=== PATIENT | male | born 2000 | race Two or more races ===

== ENCOUNTER 2022-01-03 17:21 | Emergency (ER) | payer OTHER ==
[2022-01-03 17:48] VITALS: BP 146/79; PULSE 72; TEMP 98; BMI 36.1
[2022-01-04 15:09] LABS: SARS-CoV-2 NAA Not Detected (Not Detected)
== END 2022-01-03 19:04 | disposition home or self-care (01) ==
LOC: JER 17:21
DX: R07.0 Pain in throat (principal); Z11.52 Encounter for screening for COVID-19
CPT/HCPCS: 87651; 99283-25; C9803; U0003; U0005

== ENCOUNTER 2022-03-19 10:39 | Emergency (ER) | payer OTHER ==
[2022-03-19 10:52] VITALS: BP 113/65; PULSE 84; TEMP 97.8; BMI 40.3
== END 2022-03-19 11:56 | disposition home or self-care (01) ==
LOC: JERFT 10:39
DX: L03.031 Cellulitis of right toe (principal); L60.0 Ingrowing nail
CPT/HCPCS: 99283-25

== ENCOUNTER 2022-07-04 15:32 | Emergency (ER) | payer OTHER ==
[2022-07-04 15:39] VITALS: BP 125/71; PULSE 77; RESP 18; TEMP 98; BMI 35.3
[2022-07-04] MEDS ORDERED: CEPHALEXIN MONOHYDRATE 500 MG CAPSULE (UD) PO ONE (19:04)
[2022-07-04] MEDS ORDERED: CEPHALEXIN MONOHYDRATE 500 MG CAPSULE (UD) ONE (19:06)
== END 2022-07-04 19:39 | disposition home or self-care (01) ==
LOC: JERFT 15:32
DX: S90.851A Superficial foreign body, right foot, initial encounter (principal); W45.8XXA Other foreign body or object entering through skin, initial encounter
CPT/HCPCS: 73630-TC-RT-FY; 99283-25

== ENCOUNTER 2023-02-04 12:52 | Emergency (ER) | payer OTHER ==
[2023-02-04 12:59] VITALS: BP 116/71; PULSE 76; RESP 18; TEMP 98.1; BMI 35.0
[2023-02-04] MEDS ORDERED: ACETAMINOPHEN 500 MG TABLET (FP) PO ONE (14:20)
[2023-02-04] MEDS ORDERED: CYCLOBENZAPRINE HCL 10 MG TABLET (FP) PO ONE (14:20)
[2023-02-04] MEDS ORDERED: KETOROLAC TROMETHAMINE 30 MG/1 ML VIAL IM ONE (14:20)
[2023-02-04] MEDS ORDERED: KETOROLAC TROMETHAMINE 30 MG/1 ML VIAL ONE (14:22)
[2023-02-04] MEDS ORDERED: ACETAMINOPHEN 500 MG TABLET (FP) ONE (14:22)
[2023-02-04] MEDS ORDERED: CYCLOBENZAPRINE HCL 10 MG TABLET (FP) ONE (14:22)
[2023-02-04] MEDS ORDERED: IBUPROFEN 600 MG TABLET (FP) PO ONE ×2 (14:27→14:32)
== END 2023-02-04 15:38 | disposition home or self-care (01) ==
LOC: JERFT 12:52
DX: M25.512 Pain in left shoulder (principal)
CPT/HCPCS: 73030-TC-LT-FY; 99283-25

== ENCOUNTER 2023-06-24 16:33 | Emergency (ER) | payer OTHER ==
[2023-06-24 16:38] VITALS: BP 116/64; PULSE 77; RESP 20; BMI 34.3
[2023-06-24 16:54] VITALS: TEMP 97.8
[2023-06-24] MEDS ORDERED: IBUPROFEN 600 MG TABLET (FP) PO ONE ×2 (17:16→17:39)
== END 2023-06-24 18:32 | disposition home or self-care (01) ==
LOC: JERFT 16:33
DX: S66.912A Strain of unspecified muscle, fascia and tendon at wrist and hand level, left hand, initial encounter (principal); M79.642 Pain in left hand; M79.89 Other specified soft tissue disorders; W21.05XA Struck by basketball, initial encounter; Y93.67 Activity, basketball; Y92.310 Basketball court as the place of occurrence of the external cause
CPT/HCPCS: 73110-TC-LT-FY; 73130-TC-LT-FY; 99283-25

== ENCOUNTER 2024-05-20 15:51 | Emergency (ER) | payer OTHER ==
[2024-05-20 16:06] VITALS: RESP 18; TEMP 98.4; BMI 28.2
[2024-05-20 17:15] LABS: EOS % 2.4 % (0-4.5); HEMATOCRIT 41.6 % (35.4-49); HEMOGLOBIN 14.1 GM/dL (11.7-16.9); LYMPH % 42.1 % (8-40); MCHC 33.9 g/dl (32.0-35.9); MEAN CELL VOLUME 91.5 fl (80-96); MEAN PLT VOLUME 7.8 fl (7.5-11.1); MONO % 12.5 % (3.8-10.2); PLATELET COUNT 310 10^3/uL (134-434); RBC 4.55 M/mm3 (4.00-5.60); RDW 13.4 % (11.9-15.9); WHITE BLOOD COUNT 5.2 K/mm3 (4.0-10.0)
[2024-05-20] MEDS ORDERED: ACETAMINOPHEN INJECTION 100 ML IVPB ONE ×2 (17:15→17:19)
[2024-05-20] MEDS: ACETAMINOPHEN 1000 MG/100 ML BAG IVPB ONE (17:26)
[2024-05-20] MEDS: SODIUM CHLORIDE 1,000 ML IV STA (17:26)
[2024-05-20 17:30] LABS: POTASSIUM 4.2 mmol/L (3.5-5.1)
[2024-05-20 17:33] LABS: BLOOD UREA NITROGEN 17.1 mg/dL (7-18); CALCIUM 9.6 mg/dL (8.5-10.1)
[2024-05-20 17:36] LABS: CREATININE 1.2 mg/dL (0.55-1.3)
[2024-05-20 17:38] LABS: BILIRUBIN,TOTAL 0.8 mg/dL (0.2-1); TOT PROT 7.4 g/dl (6.4-8.2)
[2024-05-20] MEDS ORDERED: KETOROLAC TROMETHAMINE 15 MG/ML VIAL ONE (20:23)
[2024-05-20] MEDS: KETOROLAC TROMETHAMINE 30 MG/1 ML VIAL IVPUSH ONE (20:31)
[2024-05-20 20:32] VITALS: BP 126/84; PULSE 80
[2024-05-20 20:42] LABS: URINE APPEARANCE CLEAR; URINE BILIRUBIN NEGATIVE (NEGATIVE); URINE COLOR YELLOW; URINE GLUCOSE (UA) NEGATIVE (NEGATIVE); URINE KETONE TRACE (NEGATIVE); URINE LEUK ESTERASE NEGATIVE (NEGATIVE); URINE NITRITE NEGATIVE (NEGATIVE); URINE PROTEIN NEGATIVE (NEGATIVE)
== END 2024-05-20 20:33 | disposition home or self-care (01) ==
LOC: JER 15:51
PROC: 3E033NZ Introduction of Analgesics, Hypnotics, Sedatives into Peripheral Vein, Percutaneous Approach (ICD-10-PCS; principal; 2024-05-20)
PROC: 3E0333Z Introduction of Anti-inflammatory into Peripheral Vein, Percutaneous Approach (ICD-10-PCS; 2024-05-20)
PROC: 3E0337Z Introduction of Electrolytic and Water Balance Substance into Peripheral Vein, Percutaneous Approach (ICD-10-PCS; 2024-05-20)
DX: R10.84 Generalized abdominal pain (principal)
CPT/HCPCS: 0241U-QW; 36415; 74176-TC; 80053; 81003; 82550; 82553; 83690; 85025; 99284-25; J0131

== ENCOUNTER 2024-12-27 15:56 | Emergency (ER) | payer SELFPAY ==
[2024-12-27 16:02] VITALS: BP 126/66; PULSE 71; RESP 20; TEMP 99; BMI 30.7
[2024-12-27] MEDS ORDERED: ONDANSETRON 4 MG/2 ML VIAL ONE (17:42)
[2024-12-27] MEDS ORDERED: FAMOTIDINE 20 MG/50 ML IVPB 20 MG/50 ML MG IVPB ONE (17:42)
[2024-12-27] MEDS ORDERED: ACETAMINOPHEN INJECTION 100 ML ONE (17:43)
[2024-12-27] MEDS: SODIUM CHLORIDE 1,000 ML IV STA ×3 (17:52→23:46)
[2024-12-27] MEDS: FAMOTIDINE 20 MG/50 ML IVPB 20 MG/50 ML MG IVPB ONE (17:53)
[2024-12-27] MEDS: ONDANSETRON 4 MG/2 ML VIAL IVPUSH ONE (17:53)
[2024-12-27] MEDS: ACETAMINOPHEN 1000 MG/100 ML BAG IVPB ONE (17:53)
[2024-12-27 18:07] LABS: HEMOGLOBIN 16.9 GM/dL (11.7-16.9); MCH 31.3 pg (25.7-33.7); MCHC 33.7 g/dl (32.0-35.9); MEAN CELL VOLUME 92.8 fl (80-96); MEAN PLT VOLUME 7.7 fl (7.5-11.1); PLATELET COUNT 296 10^3/uL (134-434); RBC 5.39 M/mm3 (4.00-5.60); RDW 13.5 % (11.9-15.9); WHITE BLOOD COUNT 16.2 K/mm3 (4.0-10.0)
[2024-12-27 18:31] LABS: THROAT:GRP A STREP NOT DETECTED (NOTDETECTED)
[2024-12-27 18:34] LABS: POTASSIUM 4.4 mmol/L (3.5-5.1)
[2024-12-27 18:40] LABS: CREATININE 1.6 mg/dL (0.55-1.3)
[2024-12-27 18:41] LABS: BILIRUBIN,TOTAL 1.2 mg/dL (0.2-1); TOT PROT 9.1 g/dl (6.4-8.2)
[2024-12-27] MEDS ORDERED: KETOROLAC TROMETHAMINE 30 MG/1 ML VIAL ONE (19:13)
[2024-12-27] MEDS: KETOROLAC TROMETHAMINE 30 MG/1 ML VIAL IVPUSH ONE (19:23)
[2024-12-27 19:47] LABS: HEMATOCRIT 47.2 % (35.4-49); HEMOGLOBIN 15.6 GM/dL (11.7-16.9); MCH 31.2 pg (25.7-33.7); MCHC 33.1 g/dl (32.0-35.9); MEAN CELL VOLUME 94.2 fl (80-96); MEAN PLT VOLUME 7.6 fl (7.5-11.1); PLATELET COUNT 273 10^3/uL (134-434); RBC 5.01 M/mm3 (4.00-5.60); RDW 13.6 % (11.9-15.9); WHITE BLOOD COUNT 14.5 K/mm3 (4.0-10.0)
[2024-12-27 22:30] LABS: ANISOCYTOSIS 1+; MACROCYTOSIS 1+
[2024-12-27 22:30] LABS: URINE APPEARANCE CLEAR; URINE BILIRUBIN NEGATIVE (NEGATIVE); URINE COLOR YELLOW; URINE GLUCOSE (UA) NEGATIVE (NEGATIVE); URINE KETONE NEGATIVE (NEGATIVE); URINE LEUK ESTERASE NEGATIVE (NEGATIVE); URINE NITRITE NEGATIVE (NEGATIVE); URINE PROTEIN NEGATIVE (NEGATIVE); URINE UROBILINOGEN 0.2 mg/dL (0.2-1.0)
[2024-12-27 22:57] LABS: POTASSIUM 4.2 mmol/L (3.5-5.1)
[2024-12-27 22:59] LABS: ALBUMIN 4.3 g/dl (3.4-5.0); BLOOD UREA NITROGEN 20.6 mg/dL (7-18); CALCIUM 9.2 mg/dL (8.5-10.1)
[2024-12-27 23:02] LABS: CREATININE 1.2 mg/dL (0.55-1.3)
[2024-12-27 23:04] LABS: BILIRUBIN,TOTAL 1.1 mg/dL (0.2-1); TOT PROT 7.6 g/dl (6.4-8.2)
[2024-12-27] MEDS ORDERED: PROCHLORPERAZINE INJECTION 10 MG/2 ML VIAL ONE (23:39)
[2024-12-27] MEDS ORDERED: METHOCARBAMOL 500 MG TABLET ONE (23:39)
[2024-12-27] MEDS: PROCHLORPERAZINE INJECTION 10 MG/2 ML VIAL IVPB ONE (23:46)
[2024-12-27] MEDS: METHOCARBAMOL 500 MG TABLET PO ONE (23:46)
== END 2024-12-28 00:32 | disposition home or self-care (01) ==
LOC: JER 15:56
PROC: 3E033GC Introduction of Other Therapeutic Substance into Peripheral Vein, Percutaneous Approach (ICD-10-PCS; principal; 2024-12-27)
PROC: 3E033NZ Introduction of Analgesics, Hypnotics, Sedatives into Peripheral Vein, Percutaneous Approach (ICD-10-PCS; 2024-12-27)
PROC: 3E0333Z Introduction of Anti-inflammatory into Peripheral Vein, Percutaneous Approach (ICD-10-PCS; 2024-12-27)
PROC: 3E033GC Introduction of Other Therapeutic Substance into Peripheral Vein, Percutaneous Approach (ICD-10-PCS; 2024-12-27)
PROC: 3E033GC Introduction of Other Therapeutic Substance into Peripheral Vein, Percutaneous Approach (ICD-10-PCS; 2024-12-27)
PROC: 3E0337Z Introduction of Electrolytic and Water Balance Substance into Peripheral Vein, Percutaneous Approach (ICD-10-PCS; 2024-12-27)
PROC: 3E0337Z Introduction of Electrolytic and Water Balance Substance into Peripheral Vein, Percutaneous Approach (ICD-10-PCS; 2024-12-27)
PROC: 3E0337Z Introduction of Electrolytic and Water Balance Substance into Peripheral Vein, Percutaneous Approach (ICD-10-PCS; 2024-12-27)
DX: K52.9 Noninfective gastroenteritis and colitis, unspecified (principal); R11.2 Nausea with vomiting, unspecified; R42 Dizziness and giddiness; Z20.822 Contact with and (suspected) exposure to COVID-19
CPT/HCPCS: 0241U-QW; 36415; 80053; 81003; 85025; 85027; 87086; 87651; 99284-25; J0131